=== PATIENT | female | born 1945 | race Caucasian/White ===

== ENCOUNTER → 2020-04-08 12:41 | Outpatient (CLI) | payer MEDICARE, BC | END | disposition home or self-care (01) | LOC: D.HCCECHO 12:41 | PROVIDERS: ATTEND Internal Medicine Cardiovascular Disease | DX: R00.0 Tachycardia, unspecified (principal) ==

== ENCOUNTER → 2020-10-01 09:31 | Outpatient (CLI) | payer MEDICARE, BC | END | disposition home or self-care (01) | LOC: D.MRI 09-28 12:40 | PROVIDERS: ATTEND Clinical Nurse Specialist Family Health | DX: M79.601 Pain in right arm (principal) ==

== ENCOUNTER → 2020-10-13 12:12 | Outpatient (CLI) | payer MEDICARE, BC | END | disposition home or self-care (01) | LOC: D.MRI 10-12 13:00 | PROVIDERS: ATTEND Clinical Nurse Specialist Family Health | DX: M54.12 Radiculopathy, cervical region (principal) ==

== ENCOUNTER → 2020-10-20 10:28 | Outpatient (CLI) | payer MEDICARE, BC | END | disposition home or self-care (01) | LOC: D.MRI 10:28 | PROVIDERS: ATTEND Clinical Nurse Specialist Family Health | DX: M54.12 Radiculopathy, cervical region (principal) ==